=== PATIENT | female | born 1975 | race African-American/Black ===

== ENCOUNTER → 2022-08-28 08:44 | Outpatient (CLI) | payer BC, SELFPAY ==
--- NOTE | ~2022-08-28 | MR_ITS ---
MRI of the lumbar spine Clinical History: Degenerative disc disease Technique: Axial T2-weighted images, and sagittal T1-weighted, T2-weighted, and and T2 fat-sat images were acquired. Findings: There is no fracture or subluxation of the lumbar spine. Vertebral bodies maintain normal h eight and alignment. No bone marrow signal reality seen. At L1-L2, L2-L3, and L3-L4, there is no significant disc bulge or herniation. No spinal canal stenosi s or neural foraminal narrowing at these levels. There is mild facet arthropathy at the levels. At L4-L5, there is minimal disc bulge with moderate facet arthropathy. No central canal stenosis. The re is mild to moderate bilateral neural foraminal narrowing. At L4-L5, there is minimal disc bulge. There is advanced facet arthropathy bilaterally. No spinal can al stenosis. Probable minimal right neural foraminal narrowing. Impression: Mild degenerative spondylosis overall, as detailed above, worst at L4-L5. Reviewed, dictated and finalized at [facility]. Impression: Mild degenerative spondylosis overall, as detailed above, worst at L4-L5.
== END ==
PROVIDERS: PCP Physician Assistant; Visit Provider Physician Assistant
DX: M51.36 Other intervertebral disc degeneration, lumbar region (principal); M47.896 Other spondylosis, lumbar region
CPT/HCPCS: 72148

== ENCOUNTER → 2023-02-15 09:36 | Outpatient (CLI) | payer BC, SELFPAY ==
--- NOTE | ~2023-02-15 | MR_ITS ---
MRI of the thoracic spine Clinical History: Radiculopathy Technique: Axial T2-weighted and gradient images, and sagittal T1-weighted, T2-weighted, and STIR grace ges were acquired. Findings: There is no fracture or subluxation of the thoracic spine. Vertebral bodies maintain normal height and alignment. No bone marrow signal abnormality seen. No disc bulge or herniation seen at any thoracic level. No spinal canal stenosis or cord compression evident. No epidural mass or collection seen. No abnormal signal seen in the spinal cord. Paravertebral soft tissues are unremarkable. Impression: Unremarkable exam. Reviewed, dictated and finalized at location . [employer] Impression: Unremarkable exam.
== END ==
PROVIDERS: PCP Physician Assistant; Visit Provider Physician Assistant
DX: M54.16 Radiculopathy, lumbar region (principal)
CPT/HCPCS: 72146